=== PATIENT | male | born 1965 | race African-American/Black ===

== ENCOUNTER 2020-05-03 13:04 | Emergency (ER) | payer BC ==
[2020-05-03] MEDS ORDERED: Aspirin 325 MG TAB ONE (13:31)
[2020-05-03 13:51] LABS: Hemoglobin 14.2 g/dL (14.0-18.0); Mean Corpuscular HGB CONC 34.2 g/dL (32.0-36.0); Mean Corpuscular Volume 90.7 fL (78.0-98.0); RBC Distribution Width 12.3 % (11.5-14.5); Red Blood Cell (RBC) Count 4.59 mill/uL (4.70-6.10); White Blood Cell (WBC) Count 7.3 thou/uL (4.8-10.8)
[2020-05-03 14:04] LABS: #Basophils 0.1 thou/uL (0.0-0.2); #Eosinphils 0.1 thou/uL (0.0-0.7); #Lymphocytes 1.6 thou/uL (1.20-3.40); #Monocytes 0.5 thou/uL (0.11-0.59); #Neutrophils 5.1 thou/uL (1.40-6.50); %Basophils 0.7 % (0.0-1.0); %Eosinophils 1.6 % (0.0-10.0); %Lymphocytes 21.9 % (21.0-51.0); %Monocytes 6.2 % (0.0-10.0); %Neutrophils 69.6 % (42.0-75.0); Large Platelets MODERATE; MDiff Complete? YES; Mean Platelet Volume 14.5 fL (7.4-10.4); Platelet Count 64 thou/uL (130-400); Platelet Morphology Comment Appears Decreased; RBC Morphology Normal
[2020-05-03 14:05] LABS: ALT (SGPT) 22 U/L (8-55); AST (SGOT) 23 U/L (5-34); Albumin 4.2 g/dL (3.5-5.0); Alkaline Phosphatase 67 U/L (40-110); Anion Gap 15 mmol/L (10-20); BUN (Urea Nitrogen) 11 mg/dL (8.4-25.7); Bilirubin, Total 0.4 mg/dL (0.2-1.2); CK (CPK) 67 U/L (30-200); Calc. Creatinine Clearance 0 mL/min (70-130); Calcium 9.3 mg/dL (7.8-10.44); Carbon Dioxide 25 mmol/L (22-29); Chloride 102 mmol/L (98-107); Estimated GFR-MDRD 77; Globulin 3.1 g/dL (2.4-3.5); Glucose 106 mg/dL (70-105); Potassium 3.7 mmol/L (3.5-5.1); Protein, Total 7.3 g/dL (6.0-8.3); Sodium 138 mmol/L (136-145)
--- NOTE | 2020-05-03 14:07 | RAD ---
PORTABLE CHEST: Indications: Chest pain Comparison: 2013 FINDINGS: The lungs appear clear. No evidence of infiltrate or effusion. Heart size upper normal and stable. Ev idence of calcified lymph node in the right paratracheal region is a stable finding. An abnormal sclerosis involving both humeral heads is also stable in appearance. IMPRESSION: No acute abnormality. POS: AGW
[2020-05-03 16:48] LABS: Troponin I 0.012 ng/mL (< 0.028)
== END 2020-05-03 16:58 | disposition home or self-care (01) ==
LOC: ERS 13:04
DX: R07.89 Other chest pain (principal); I10 Essential (primary) hypertension; F41.9 Anxiety disorder, unspecified
CPT/HCPCS: 36415; 71045; 80053; 82550; 84484; 85025; 93005

== ENCOUNTER 2020-07-17 06:17 | Outpatient (CLI) | payer BC ==
[2020-07-17 11:30] LABS: #Basophils 0.1 10x3/uL (0.0-0.2); #Eosinphils 0.3 10x3/uL (0.0-0.5); #Monocytes 0.7 10x3/uL (0.0-1.1); #Neutrophils 4.6 10x3/uL (1.5-8.4); %Basophils 1.1 % (0.0-2.0); %Eosinophils 4.1 % (0.0-6.0); %Lymphocytes 24.4 % (18.0-47.0); %Monocytes 8.9 % (0.0-10.0); %Neutrophils 61.2 % (40.0-75.0); Hemoglobin 14.1 g/dL (14.0-18.0); Mean Corpuscular HGB CONC 33.4 G/DL (32.0-36.0); Mean Corpuscular Hemoglobin 29.1 PG (27.0-33.0); Mean Corpuscular Volume 87.2 fl (80.0-100.0); Platelet Count 96 10x3/uL (130-400); RBC Distribution Width 13.6 % (11.5-14.5); Red Blood Cell (RBC) Count 4.84 10x6/uL (4.40-5.80); White Blood Cell (WBC) Count 7.5 10x3/uL (4.5-11.0)
[2020-07-17 11:38] LABS: ALT (SGPT) 17 U/L (8-55); AST (SGOT) 17 U/L (5-34); Albumin 4.4 g/dL (3.5-5.0); Alkaline Phosphatase 92 U/L (40-110); Anion Gap 13 mmol/L (10-20); BUN (Urea Nitrogen) 12 mg/dL (8.4-25.7); Bilirubin, Total 0.5 mg/dL (0.2-1.2); Calc. Creatinine Clearance 0 mL/min (70-130); Calcium 9.5 mg/dL (7.8-10.44); Carbon Dioxide 29 mmol/L (22-29); Chloride 103 mmol/L (98-107); Estimated GFR-MDRD 66; Globulin 2.7 g/dL (2.4-3.5); Glucose 89 mg/dL (70-105); Potassium 4.1 mmol/L (3.5-5.1); Protein, Total 7.1 g/dL (6.0-8.3); Sodium 141 mmol/L (136-145)
[2020-07-17 22:10] LABS: SARS-CoV-2 MS2 Positive; SARS-CoV-2 N Gene Negative; SARS-CoV-2 S Gene Negative; SARS-CoV-2 by NAA Not Detected (NotDetected); SARS-CoV-2 orf1ab Negative
--- NOTE | 2020-07-21 06:56 | EKG ---
Test Reason : Blood Pressure : / mmHG Vent. Rate : 077 BPM Atrial Rate : 077 BPM P-R Int : 152 ms QRS Dur : 076 ms QT Int : 382 ms P-R-T Axes : 029 011 046 degrees QTc Int : 432 ms Normal sinus rhythm Normal ECG When compared with ECG of 03-MAY-2020 13:15, No significant change was found Confirmed by JARRELL FRIEDMAN MD ([id number]) on 07/21/2020 6:56:30 AM Referred By: JULES Confirmed By:JARRELL FRIEDMAN MD
== END 2020-07-17 06:18 | disposition home or self-care (01) ==
LOC: LABBT 06:17
PROVIDERS: ATTEND Surgery
DX: Z01.818 Encounter for other preprocedural examination (principal); K42.9 Umbilical hernia without obstruction or gangrene; Z20.828 Contact with and (suspected) exposure to other viral communicable diseases
CPT/HCPCS: 80053; 85025; 87635; 93005; 93010; U0003

== ENCOUNTER 2020-07-22 06:52 | Day surgery (SDC) | payer BC ==
[2020-07-21 10:34] VITALS: BMI 27.9
[2020-07-22] MEDS ORDERED: Bupivacaine 0.25% HCL 30 ML VIAL ONE (09:13)
[2020-07-22] MEDS ORDERED: Fentanyl 100 MCG/2 ML VIAL ONE (09:24)
[2020-07-22] MEDS ORDERED: SUGAMMADEX SODIUM 200 MG/2 ML VIAL ONE (10:33)
--- NOTE | 2020-07-22 10:56 | OP ---
DATE OF PROCEDURE: 07/22/2020 PREOPERATIVE DIAGNOSIS: Umbilical hernia. PROCEDURE PERFORMED: Umbilical hernia repair with mesh. INDICATIONS: A 55-year-old male with a painful umbilical hernia. FINDINGS: A 2 cm defect, 8 cm mesh. DESCRIPTION OF PROCEDURE: After informed consent was obtained, the patient was taken to the operating room and given general endotracheal anesthesia, placed in the supine position. Abdomen was prepped and draped in usual fashion. Local anesthesia was infiltrated subcutaneously and deep, and a subumbilical incision was performed, subcu divided sharply. The umbilical skin was dissected off the hernia sac circumferentially down to the fascia and excised. The defect was 2 cm. An 8 cm Proceed mesh was inserted intra-abdominally. The leads were sutured to the abdominal wall with interrupted 0 Ethibond suture. Hemostasis was achieved with electrocautery. The skin was sutured to the fascia with interrupted 3-0 Vicryl suture. Subcu reapproximated with interrupted 3-0 Vicryl, and the skin closed with interrupted 4-0 Rapide. Steri-Strips applied. Sterile bandage applied. The patient tolerated the procedure well, transferred to Recovery in good condition. Sponge and needle count verified correct x2. Job ID: [id number]
[2020-07-22] MEDS ORDERED: Ondansetron PF 4 MG/2 ML Vial ONE (11:41)
[2020-07-22] MEDS ORDERED: Lidocaine 1% PF 5 ML VIAL ONE (11:41)
[2020-07-22] MEDS ORDERED: Dexamethasone 20 MG/5 ML VIAL ONE (11:41)
[2020-07-22] MEDS ORDERED: Succinylcholine 200 MG/10 ml SYRINGE FS ONE (11:41)
[2020-07-22] MEDS ORDERED: PHENYLEPHRINE-NS 100 MCG/ML 10 ML SYRINGE ONE (11:41)
[2020-07-22] MEDS ORDERED: PROPOFOL 200 MG/20 ML VIAL ONE (11:41)
[2020-07-22] MEDS ORDERED: Rocuronium Bromide 10 MG/ML (10ML VIAL) ONE (11:41)
[2020-07-22] MEDS ORDERED: HYDROcodone/Acetaminophen 5/325 mg Tablet ONE (13:41)
== END 2020-07-22 14:30 | disposition home or self-care (01) ==
LOC: SDC 06:52
PROVIDERS: ATTEND Surgery
PROC: 0WUF0JZ Supplement Abdominal Wall with Synthetic Substitute, Open Approach (ICD-10-PCS; principal; 2020-07-22)
DX: K42.9 Umbilical hernia without obstruction or gangrene (principal); I10 Essential (primary) hypertension; E78.5 Hyperlipidemia, unspecified; Z79.899 Other long term (current) drug therapy
CPT/HCPCS: C1781; J0690; J1100; J2405; J2704; J3010; S0020